=== PATIENT | male | born 1990 | race Caucasian/White ===

== ENCOUNTER 2018-02-05 08:55 | Day surgery (SDC) | payer MEDICAID ==
[~2018-02-05] VITALS: Ht 170.2 cm; Wt 73.0 kg
[2018-02-05] MEDS ORDERED: ESOM20CA PO (09:58)
[2018-02-05] MEDS ORDERED: BISA5TAB79 PO (09:58)
[2018-02-05] MEDS ORDERED: LIDOCAINE 2% 100 MG/5 ML UJET TP ONE (10:02)
== END 2018-02-05 11:16 | disposition home or self-care (01) ==
LOC: MDS 08:55 → MMU 08:56 → MDS 11:16
PROVIDERS: ATTEND Internal Medicine Gastroenterology
DX: R10.32 Left lower quadrant pain (principal); Z79.899 Other long term (current) drug therapy
CPT/HCPCS: 45330

== ENCOUNTER 2022-10-06 01:03 | Emergency (ER) | payer SELFPAY ==
[~2022-10-06] VITALS: Ht 167.6 cm; Wt 63.5 kg
[2022-10-06 01:03] VITALS: BP 130/83
[~2022-10-06 01:03] MED LIST: BISA5TAB79 PO; ESOM20CA PO
--- NOTE | 2022-10-06 01:04 | NUR ---
DAMIAN WOODY. TAKEN TO CHAIR A
[2022-10-06 01:10] VITALS: BP 130/83
--- NOTE | 2022-10-06 01:20 | NUR ---
PATIENT BIB [facility] POLICE DEPT. PATIENT EXAMINED BY DR. FUENTES. PATIENT MEDICALLY CLEARED AND RELEASED IN CUSTODY IN STABLE CONDITION. ORIGINAL PRE-BOOK FORM GIVEN TO OFFICER [facility]ARA #[id number].
== END 2022-10-06 01:20 ==
LOC: MED 01:03
DX: Z02.89 Encounter for other administrative examinations (principal); Z79.899 Other long term (current) drug therapy; V49.9XXA Car occupant (driver) (passenger) injured in unspecified traffic accident, initial encounter; Y93.89 Activity, other specified; Y92.89 Other specified places as the place of occurrence of the external cause; Y99.8 Other external cause status
CPT/HCPCS: 99283